=== PATIENT | male | born 1990 | race African-American/Black ===

== ENCOUNTER 2016-06-24 11:27 | Emergency (ER) | payer OTHER ==
[~2016-06-24] VITALS: Ht 172.7 cm; Wt 65.0 kg
[~2016-06-24 11:27] MED LIST: LITH300 PO; LITH450T PO; QUET100 PO; QUET200 PO; SERO100T PO
[2016-06-24 11:29] VITALS: BP 130/92; PULSE 57; RESP 14; TEMP 97.7; O2SAT 100
[2016-06-24] MEDS ORDERED: AMOX500C PO (12:07)
[2016-06-24] MEDS ORDERED: PERI0.126 SWISH-SPIT (12:07)
[2016-06-24] MEDS ORDERED: IBUP800T23 PO (12:07)
[2016-06-24] MEDS ORDERED: MAGICPED SWISH-SWAL (12:07)
--- NOTE | 2016-06-24 12:07 | PD ---
HPI Chief Complaint: Oral / Dental Pain or Problem Time Seen by Provider: 11:57 Travel History International Travel<30 days: No Contact w/Intl Traveler<30days: No Traveled to known affect area: No History of Present Illness HPI 26-year-old male presents to emergency department 2 complaints. His first complaint is right and left lower dental pain that has been going on for over a year. Denies dental trauma. Reports worsening of pain to both areas in the last few days. Denies facial swelling or erythema. Denies fever, chills, nausea, vomiting. No known relieving or aggravating factors. Has not taken any medications or tried any treatments to alleviate his symptoms. His second complaint is penile discharge for 2 days. 2 days ago his sexual partner told him that she had chlamydia. He denies penile pain, testicular pain , testicular edema. Denies abdominal pain, nausea, vomiting. Reports dysuria. Denies hematuria, frequency, urgency. No known allergies. No other modifying factors or associated signs and symptoms. PFSH Past Medical History Psychiatric: Yes (pt has been diagnosed with Bipolar ) Schizophrenia: Yes Social History Alcohol Use: No Tobacco Use: No Substance Use: No Allergies-Medications (Allergen,Severity, Reaction): Coded Allergies: No Known Allergies (Verified , 06/24/16) Reported Meds & Prescriptions Reported Meds & Active Scripts Active Ibuprofen 800 Mg Tab 800 Mg PO Q6HR PRN Magic Mouthwash Pediatric/Adult Liq (Lidocaine/Diphenhydr/Alum/Mg/Simeth) 60 Ml Susp 5 Ml SWISH-SWAL Q3HR PRN Each 5mL contains: Diphenydramine 4.5mg, Viscous Lidocaine 2% 10mg, Maalox Advanced Regular Strength 2.7ml Peridex Liq (Chlorhexidine Gluconate (Mouth) Liq) 0.12% Soln 15 Ml SWISH-SPIT BID 10 Days Amoxicillin 500 Mg Cap 500 Mg PO BID 10 Days Lithotabs ([place] Carbonate) 300 Mg Tab 300 Mg PO DAILY Lithotabs ([place] Carbonate) 300 Mg Tab 600 Mg PO HS Quetiapine Fumarate 200 Mg Tab 200 Mg PO HS Quetiapine Fumarate 100 Mg Tab 100 Mg PO DAILY Reported Seroquel 100 mg (Quetiapine Fumarate) 100 Mg Tab 100 Mg PO BID Eskalith 450 Mg Tab Cr ([place] Carbonate) 450 Mg Tabcr 450 Mg PO Review of Systems Except as stated in HPI: all other systems reviewed are Neg Physical Exam Narrative GENERAL: Well-nourished, well-developed male patient, in no acute distress; afebrile, nontoxic-appearing SKIN: Warm and dry. HEAD: Atraumatic. Normocephalic. No facial edema, erythema, tenderness on palpation. No lymphadenopathy. EYES: Pupils equal and round. No scleral icterus. No injection or drainage. ENT: Mucosa pink and moist. Airway patent. MOUTH: Mucous membranes moist, no lesions, tongue and gums appear normal. Left lower second molar and right lower first molar with tenderness on palpation; strength gingiva is without erythema, edema, drainage; no obvious abscess noted. NECK: Trachea midline. No lymphadenopathy. CARDIOVASCULAR: Regular rate. RESPIRATORY: No accessory muscle use. GASTROINTESTINAL: Flat. MUSCULOSKELETAL: No obvious deformities. No clubbing. No cyanosis. No edema. NEUROLOGICAL: Awake and alert. Oriented 3. No obvious cranial nerve deficits. Motor grossly within normal limits. Normal speech. PSYCHIATRIC: Appropriate mood and affect; insight and judgment normal. Data Data Last Documented VS Vital Signs Date Time Temp Pulse Resp B/P Pulse Ox O2 Delivery O2 Flow Rate FiO2 06/24/16 11:29 97.7 57 14 130/92 100 Room Air Orders Gc And Chlamydia Pcr (06/24/16 12:18) Azithromycin Powd Pack (Zithromax Powd P (06/24/16 12:30) Ceftriaxone Inj (Rocephin Inj) (06/24/16 12:30) Lidocaine 1% Inj (50 Ml) (Xylocaine 1% I (06/24/16 12:30) MDM Medical Decision Making Medical Screen Exam Complete: Yes Emergency Medical Condition: Yes Medical Record Reviewed: Yes Differential Diagnosis Exposure to chlamydia, dentalgia, sexual transmitted disease, dental abscess Narrative Course 26-year-old male with 2 complaints. First complaint is consistent with dentalgia. Patient instructed to follow up with dentist. Amoxicillin, Magic mouthwash, Peridex mouth rinse, ibuprofen prescribed for home. His second complaint is exposure to chlamydia. He reports penile discharge. Chlamydia and gonorrhea pending. The patient will be empirically treated with Rocephin and azithromycin in the ER. Rocephin and azithromycin ordered and administered in the ER. Instructed patient to follow up for further STD testing with his primary care provider or at the health department. Patient verbalizes understanding and agreement with treatment plan. Patient is medically cleared and stable for discharge. Discussed reasons to return to the emergency department. Instructed patient to follow up with primary care provider. Patient agrees with treatment plan. The patients vital signs are stable and the patient is stable for outpatient follow-up and treatment. Patient discharged home, stable and in no acute distress. Diagnosis Primary Impression: Dentalgia Additional Impression: Exposure to chlamydia Referrals: Dentist Primary Care Physician Patient Instructions: Chlamydia (ED), Dental Abscess (ED), Dental Caries (ED), General Instructions, Gonorrhea (ED), Toothache (ED) Departure Forms: Tests/Procedures, Work Release Enter return to work date: Jun 25, 2016 Additional Instructions: Complete full course of antibiotics Ibuprofen as directed and as needed to reduce pain and inflammation Use Magic mouthwash rinse as directed and as needed to decrease pain Use Peridex as directed for oral hygiene Warm or cold compresses to the affected area Follow-up with dentist Follow-up with primary care provider Return to emergency department immediately with worsening of symptoms Avoid sexual activity until you follow up with your primary care provider Inform all sexual partners within the past 3-6 months that they need to be evaluated and treated Use condoms every time you have sex Follow-up with primary care provider Return to the emergency department immediately with worsening of symptoms Med/Other Pt SpecificInfo: Prescription(s) given Scripts Ibuprofen 800 Mg [id number] Mg PO Q6HR PRN (PAIN) #30 TAB Ref 0 Prov:Aga Soni 06/24/16 Pxkuosrjjkiwjxt-Kcqrtlyte-Msl-Alum-Simeth Liq (Magic Mouthwash Pediatric/Adult Liq)60 Ml Susp5 Ml SWISH-SWAL Q3HR PRN (PAIN SCALE 1 TO 10) #60 ML Ref 0 Each 5mL contains: Diphenydramine 4.5mg, Viscous Lidocaine 2% 10mg, Maalox Advanced Regular Strength 2.7ml Prov:Aga Soni 06/24/16 Chlorhexidine Gluconate (Mouth) Liq (Peridex Liq)0.12% Soln15 Ml SWISH-SPIT BID 10 Days Ref 0 Prov:Aga Soni 06/24/16 Amoxicillin 500 Mg Ric322 Mg PO BID 10 Days Ref 0 Prov:Aga Soni 06/24/16 Disposition: 01 DISCHARGE HOME Condition: Stable Aga Soni Jun 24, 2016 12:07
[2016-06-24] MEDS ORDERED: cefTRIAXone 250 MG VIAL IM ONE (12:30)
[2016-06-24] MEDS ORDERED: LIDOCAINE HCL 1% 50 ML VIAL IM ONE (12:30)
[2016-06-24] MEDS ORDERED: AZITHROMYCIN PWD FOR SUSP 1 GM PACKET PO ONE (12:30)
[2016-06-24 14:46] LABS: CHLAMYDIA PCR DETECTED (NOT DETECT); NEISSERIA PCR DETECTED (NOT DETECT)
== END 2016-06-24 13:26 | disposition home or self-care (01) ==
LOC: NETRI 11:27
DX: K08.89 Other specified disorders of teeth and supporting structures (principal); Z20.2 Contact with and (suspected) exposure to infections with a predominantly sexual mode of transmission
CPT/HCPCS: 87491; 87591; 96372; 99283; J0696

== ENCOUNTER 2016-09-09 12:51 | Emergency (ER) | payer OTHER ==
[~2016-09-09] VITALS: Ht 172.7 cm; Wt 64.0 kg
[~2016-09-09 12:51] MED LIST changes: +AMOX500C PO; +IBUP800T23 PO; +MAGICPED SWISH-SWAL; +PERI0.126 SWISH-SPIT
[2016-09-09 12:52] VITALS: BP 129/65; PULSE 84; RESP 20; TEMP 97.9; O2SAT 98
[2016-09-09] MEDS ORDERED: LIDOCAINE HCL 1% 50 ML VIAL XX ONE (13:45)
[2016-09-09] MEDS ORDERED: metroNIDAZOLE 500 MG TAB PO ONE (13:45)
[2016-09-09] MEDS ORDERED: cefTRIAXone 250 MG VIAL IM ONE (13:45)
[2016-09-09] MEDS ORDERED: AZITHROMYCIN 250 MG TAB PO ONE (13:45)
[2016-09-09] MEDS ORDERED: ONDANSETRON ODT 4 MG TAB PO/SL ONE (13:45)
[2016-09-09 14:11] LABS: BLOOD, URINE NEG (NEG); COMMENT (UR) CULT NOT INDICATED; CULTURE IF INDICATED CULT NOT INDICATED; GLUCOSE,URINE NEG (NEG); KETONE, URINE NEG (NEG); MUCUS URINE FEW /lpf (OCC); NITRITE,URINE NEG (NEG); PH, URINE 6.5 (5.0-8.5); URINE COLOR YELLOW (YELLW/STRAW)
--- NOTE | 2016-09-09 14:23 | PD ---
HPI Chief Complaint: Complaint Time Seen by Provider: 14:00 Travel History International Travel<30 days: No Contact w/Intl Traveler<30days: No Traveled to known affect area: No History of Present Illness HPI Patient is a 26-year-old male presented to emergency evaluation of dysuria, penile discharge and tooth pain. Patient states that the pain is been ongoing for at least a year. He has no new complaints regarding that but states he needs to see a dentist. Patient had unprotected sexual intercourse 2 weeks ago and has been experiencing these symptoms for the last several days. He denies any abdominal pain, fever, chills, back pain. PFSH Past Medical History Psychiatric: Yes (pt has been diagnosed with Bipolar ) Schizophrenia: Yes Social History Alcohol Use: No Tobacco Use: No Substance Use: No Allergies-Medications (Allergen,Severity, Reaction): Coded Allergies: No Known Allergies (Verified , 09/09/16) Reported Meds & Prescriptions Reported Meds & Active Scripts Active Ibuprofen 800 Mg Tab 800 Mg PO Q6HR PRN Magic Mouthwash Pediatric/Adult Liq (Lidocaine/Diphenhydr/Alum/Mg/Simeth) 60 Ml Susp 5 Ml SWISH-SWAL Q3HR PRN Each 5mL contains: Diphenydramine 4.5mg, Viscous Lidocaine 2% 10mg, Maalox Advanced Regular Strength 2.7ml Peridex Liq (Chlorhexidine Gluconate (Mouth) Liq) 0.12% Soln 15 Ml SWISH-SPIT BID 10 Days Amoxicillin 500 Mg Cap 500 Mg PO BID 10 Days Lithotabs ([place] Carbonate) 300 Mg Tab 300 Mg PO DAILY Lithotabs ([place] Carbonate) 300 Mg Tab 600 Mg PO HS Quetiapine Fumarate 200 Mg Tab 200 Mg PO HS Quetiapine Fumarate 100 Mg Tab 100 Mg PO DAILY Reported Seroquel 100 mg (Quetiapine Fumarate) 100 Mg Tab 100 Mg PO BID Eskalith 450 Mg Tab Cr ([place] Carbonate) 450 Mg Tabcr 450 Mg PO Review of Systems Except as stated in HPI: all other systems reviewed are Neg HENT: Positive: Dental Difficulties Genitourinary: Positive: Dysuria, Discharge Physical Exam Narrative GENERAL: Well-nourished, well-developed patient. SKIN: Focused skin assessment warm/dry. HEAD: Normocephalic. MOUTH: Mucous membranes moist, no lesions, tongue and gums appear normal. Multiple dental caries. EYES: No scleral icterus. No injection or drainage. NECK: Supple, trachea midline. No JVD or lymphadenopathy. CARDIOVASCULAR: Regular rate and rhythm without murmurs, gallops, or rubs. RESPIRATORY: Breath sounds equal bilaterally. No accessory muscle use. GASTROINTESTINAL: Abdomen soft, non-tender, nondistended. MUSCULOSKELETAL: No cyanosis, or edema. BACK: Nontender without obvious deformity. No CVA tenderness. Data Data Last Documented VS Vital Signs Date Time Temp Pulse Resp B/P Pulse Ox O2 Delivery O2 Flow Rate FiO2 09/09/16 12:52 97.9 84 20 129/65 98 Room Air Orders Urinalysis - C+S If Indicated (09/09/16 13:40) Gc And Chlamydia Pcr (09/09/16 13:40) Azithromycin (Zithromax) (09/09/16 13:45) Ceftriaxone Inj (Rocephin Inj) (09/09/16 13:45) Metronidazole (Flagyl) (09/09/16 13:45) Ondansetron Odt (Zofran Odt) (09/09/16 13:45) Lidocaine 1% Inj (50 Ml) (Xylocaine 1% I (09/09/16 13:45) Labs Laboratory Tests Test 09/09/16 13:49 Urine Color YELLOW Urine Turbidity CLEAR Urine pH 6.5 Urine Specific [place] 1.024 Urine Protein NEG mg/dL Urine Glucose (UA) NEG mg/dL Urine Ketones NEG mg/dL Urine Occult Blood NEG Urine Nitrite NEG Urine Bilirubin NEG Urine Urobilinogen LESS THAN 2.0 MG/DL Urine Leukocyte Esterase TRACE Urine RBC 4 /hpf Urine WBC 4 /hpf Urine Mucus FEW /lpf Microscopic Urinalysis Comment CULT NOT INDICATED MDM Medical Decision Making Medical Screen Exam Complete: Yes Emergency Medical Condition: Yes Medical Record Reviewed: Yes Interpretation(s) Vital Signs Date Time Temp Pulse Resp B/P Pulse Ox O2 Delivery O2 Flow Rate FiO2 09/09/16 12:52 97.9 84 20 129/65 98 Room Air Differential Diagnosis Dentalgia versus abscess versus dental infection versus STD versus UTI versus other Narrative Course Patient is a 26-year-old male presenting to the emergency department evaluation of urinary symptoms and dental pain. Dental pain is been ongoing for over a year. Urinary symptoms and ongoing for 3 days. Patient was treated empirically for chlamydia, gonorrhea, trichomoniasis. He has a history of the same. He was advised to avoid sexual contact with partner until they are tested or treated. He was advised to maintain safe sexual practices to avoid transmission of other sexually transmitted diseases. He was advised to follow up with [facility] Department for further STD screening. Patient verbalized understanding of instructions. Patient stable for discharge. Diagnosis Primary Impression: Dentalgia Additional Impressions: Dysuria Possible exposure to STD Referrals: Dentist [facility] Dept. Patient Instructions: General Instructions, Sexually Transmitted Diseases (ED) , Toothache (ED) Additional Instructions: Do not engage in sexual intercourse for 3-5 days. Do not drink alcohol for at least 48 hours Avoid contact with sexual partner until they are tested/treated to avoid re- exposure Return to emergency department for any new or worsening symptoms You need to see a dentist for chronic dental problems. Med/Other Pt SpecificInfo: No Change to Meds Disposition: 01 DISCHARGE HOME Condition: Stable Kinza Conde September 09, 2016 14:23
[2016-09-09 16:42] LABS: CHLAMYDIA PCR NOT DETECTED (NOT DETECT); NEISSERIA PCR NOT DETECTED (NOT DETECT)
== END 2016-09-09 14:52 | disposition home or self-care (01) ==
LOC: NEPK 12:51
DX: K08.89 Other specified disorders of teeth and supporting structures (principal); R30.0 Dysuria
CPT/HCPCS: 81001; 87491; 87591; 96372; 99284; J0696

== ENCOUNTER 2016-10-05 11:15 | Emergency (ER) | payer OTHER ==
[~2016-10-05] VITALS: Ht 180.3 cm; Wt 70.0 kg
[2016-10-05 11:16] VITALS: BP 136/69; PULSE 110; RESP 20; TEMP 98.3; O2SAT 97
--- NOTE | 2016-10-05 11:28 | PD ---
Physical Exam Time Seen by Provider: 11:27 Narrative 26yo M c/o sore to tip of tongue since last night. +painful sore. Luther fever. +nausea w/o vomiting. Patient seen in triage. Awaiting bed placement. VS reviewed. Data Data Last Documented VS Vital Signs Date Time Temp Pulse Resp B/P Pulse Ox O2 Delivery O2 Flow Rate FiO2 10/05/16 11:16 98.3 110 20 136/69 97 Room Air MDM Supervised Visit with RICKY: Aga Barron Oct 05, 2016 11:28
--- NOTE | 2016-10-05 11:56 | PD ---
HPI Chief Complaint: Oral / Dental Pain or Problem Time Seen by Provider: 11:47 Travel History International Travel<30 days: No Contact w/Intl Traveler<30days: No Traveled to known affect area: No History of Present Illness HPI 26-year-old male here with complaint of oral lesion. Patient states that he has had one day of a lesion on the tip of the tongue. States that this is slightly painful, worse when he is eating particularly salty or sour foods. States that the lesion makes him feel slightly nauseous but he has not had any vomiting, diarrhea or abdominal pain. No fevers or chills. PFSH Past Medical History Psychiatric: Yes (pt has been diagnosed with Bipolar ) Schizophrenia: Yes Social History Alcohol Use: No Tobacco Use: No Substance Use: No Allergies-Medications (Allergen,Severity, Reaction): Coded Allergies: No Known Allergies (Verified , 09/09/16) Reported Meds & Prescriptions Reported Meds & Active Scripts Active Ibuprofen 800 Mg Tab 800 Mg PO Q6HR PRN Magic Mouthwash Pediatric/Adult Liq (Lidocaine/Diphenhydr/Alum/Mg/Simeth) 60 Ml Susp 5 Ml SWISH-SWAL Q3HR PRN Each 5mL contains: Diphenydramine 4.5mg, Viscous Lidocaine 2% 10mg, Maalox Advanced Regular Strength 2.7ml Peridex Liq (Chlorhexidine Gluconate (Mouth) Liq) 0.12% Soln 15 Ml SWISH-SPIT BID 10 Days Amoxicillin 500 Mg Cap 500 Mg PO BID 10 Days Lithotabs ([place] Carbonate) 300 Mg Tab 300 Mg PO DAILY Lithotabs ([place] Carbonate) 300 Mg Tab 600 Mg PO HS Quetiapine Fumarate 200 Mg Tab 200 Mg PO HS Quetiapine Fumarate 100 Mg Tab 100 Mg PO DAILY Reported Seroquel 100 mg (Quetiapine Fumarate) 100 Mg Tab 100 Mg PO BID Eskalith 450 Mg Tab Cr ([place] Carbonate) 450 Mg Tabcr 450 Mg PO Review of Systems General / Constitutional: No: Fever Cardiovascular: No: Chest Pain or Discomfort Respiratory: No: Shortness of Breath Physical Exam Narrative GENERAL: Well-appearing male in no acute distress SKIN: Focused skin assessment warm/dry. No lesions on the skin. HEAD: Normocephalic. EYES: No scleral icterus. No injection or drainage. No ocular lesions. ENT: Small aphthous ulcer on the tip of the tongue and posterior pharynx is clear NECK: Supple CARDIOVASCULAR: Regular rate and rhythm. RESPIRATORY: No accessory muscle use. GASTROINTESTINAL: Abdomen soft, non-tender, nondistended. MUSCULOSKELETAL: Normal gait NEUROLOGICAL: Awake and alert. Normal speech. Data Data Last Documented VS Vital Signs Date Time Temp Pulse Resp B/P Pulse Ox O2 Delivery O2 Flow Rate FiO2 10/05/16 11:16 98.3 110 20 136/69 97 Room Air MDM Medical Decision Making Medical Screen Exam Complete: Yes Emergency Medical Condition: No Medical Record Reviewed: Yes Differential Diagnosis 26-year-old male here with complaint of lesion to the tongue. Exam shows small aphthous ulcer. No evidence of other mucosal involvement or rash Narrative Course Patient was reassured. This is not emergent. No emergent medical condition and he was seen by our financial screener Diagnosis Primary Impression: Aphthous ulcer Disposition: EDGO-ED USE ONLY Condition: Stable Marycruz Lew MD Oct 05, 2016 11:56
== END 2016-10-05 12:56 | disposition home or self-care (01) ==
LOC: NEPA 11:15
DX: K12.0 Recurrent oral aphthae (principal); F31.9 Bipolar disorder, unspecified; F20.9 Schizophrenia, unspecified; Z79.899 Other long term (current) drug therapy
CPT/HCPCS: 99281

== ENCOUNTER 2017-07-15 09:10 | Inpatient (IN) | payer MEDICAID, OTHER ==
[2017-07-15 09:13] VITALS: BP 158/97; PULSE 94; RESP 14; TEMP 97.4; O2SAT 99
--- NOTE | 2017-07-15 10:07 | PD ---
HPI Chief Complaint: Psychiatric Symptoms Time Seen by Provider: 09:28 Travel History International Travel<30 days: No Contact w/Intl Traveler<30days: No Traveled to known affect area: No History of Present Illness HPI 27-year-old male presents to the emergency department voluntarily for psychiatric evaluation with complaint of worsening of hearing voices and feeling depressed with worsening since being off of his psychiatric medication. He has history of schizophrenia and bipolar disorder and has been off of his medications for about 2-1/2 months. He does not know the name of his medications he was taking says he thought he could come off of his medications and deal with things on his own and do it himself. Denies visual hallucinations. Denies suicidal or homicidal ideations. Denies history of suicidal attempts. Reports marijuana use, occasional alcohol use and tobacco use. Symptoms have become worse since he has been off of his medications. He is also dealing with someone who is like a mom to him who has and a lot of stress lately. Symptoms are moderate to severe in severity. No known relieving factors. Duration unknown. Onset unknown. No primary care provider. Psychiatrist is Jonathan. No known allergies. History of schizophrenia and bipolar disorder. Denies other significant past medical history. Has no other medical complaints. Denies chest pain, shortness breath , abdominal pain, nausea, vomiting, change in urine or stool. No other modifying factors or associated signs and symptoms. PFSH Past Medical History Bipolar Disorder: Yes Depression: Yes Psychiatric: Yes Schizophrenia: Yes Past Surgical History Surgical History: No Previous Surgery Social History Alcohol Use: Yes (OCCASSIONAL) Tobacco Use: No Substance Use: Yes (MARIJUANA SOMETIMES) Allergies-Medications (Allergen,Severity, Reaction): Coded Allergies: No Known Allergies (Verified Adverse Reaction, Unknown, 07/15/17) Reported Meds & Prescriptions Reported Meds & Active Scripts Active No Active Prescriptions or Reported Medications Review of Systems Except as stated in HPI: all other systems reviewed are Neg Physical Exam Narrative GENERAL: Well-nourished, well-developed black male patient, in no acute distress SKIN: Warm and dry. HEAD: Atraumatic. Normocephalic. EYES: Pupils equal and round. ENT: Mucosa pink and moist. NECK: Supple. Trachea midline. CARDIOVASCULAR: Regular rate and rhythm. No murmur appreciated. RESPIRATORY: No accessory muscle use. Clear to auscultation. Breath sounds equal bilaterally. GASTROINTESTINAL: Abdomen soft, non-tender, nondistended. Hepatic and splenic margins not palpable. Bowel sounds are active 4 quadrants. MUSCULOSKELETAL: No obvious deformities. No clubbing. No cyanosis. No edema. NEUROLOGICAL: Awake and alert. Oriented 3. No obvious cranial nerve deficits. Motor grossly within normal limits. Normal speech. Moves all extremities. 5/5 strength to all extremities. PSYCHIATRIC: No delusional thought processes. No hallucinations. Data Data Last Documented VS Vital Signs Date Time Temp Pulse Resp B/P (MAP) Pulse Ox O2 Delivery O2 Flow Rate FiO2 07/15/17 09:45 18 07/15/17 09:13 97.4 94 158/97 (117) 99 Orders Orders Complete Blood Count With Diff (07/15/17:29) Comprehensive Metabolic Panel (07/15/17 09:29) Thyroid Stimulating Hormone (07/15/17:29) Psych Screen (07/15/17 09:29) Drug Screen, Random Urine (07/15/17:29) Alcohol (Ethanol) (07/15/17 09:29) Salicylates (Aspirin) (07/15/17 09:29) Tylenol (Acetaminophen) (07/15/17 09:29) MDM Medical Decision Making Medical Screen Exam Complete: Yes Emergency Medical Condition: Yes Medical Record Reviewed: Yes Differential Diagnosis Schizophrenia, bipolar disorder, depression, hallucinations, medical clearance for psychiatric evaluation Narrative Course Patient presents voluntarily. Physical examination and vital signs are essentially unremarkable. Patient has no medical complaints to report. Psych screen has been ordered. If the laboratory results are unremarkable, the patient will be medically cleared for psychiatric evaluation and disposition. Diagnosis Primary Impression: Encounter for psychological evaluation Scripts No Active Prescriptions or Reported Meds Condition: Stable Aga Soni Jul 15, 2017 10:07
[2017-07-15 10:26] LABS: BASOPHIL % 0.5 % (0.0-2.0); EOSINOPHIL # 0.2 TH/MM3 (0-0.4); HEMATOCRIT 40.8 % (39.0-51.0); HEMOGLOBIN 13.5 GM/DL (13.0-17.0); LYMPH % 24.2 % (9.0-44.0); LYMPHOCYTE # 1.8 TH/MM3 (1.0-4.8); MEAN CELL VOLUME 85.1 FL (80.0-100.0); MEAN CORPUSCULAR HEMOGLOBIN 28.2 PG (27.0-34.0); MEAN CORPUSCULAR HGB CONC 33.2 % (32.0-36.0); MEAN PLATELET VOLUME 7.9 FL (7.0-11.0); MONO % 8.1 % (0.0-8.0); MONOCYTE # 0.6 TH/MM3 (0-0.9); NEUT % 65.2 % (16.0-70.0); PLATELET COUNT 168 TH/MM3 (150-450); RED BLOOD COUNT 4.79 MIL/MM3 (4.50-5.90); RED CELL DISTRIBUTION WIDTH 14.8 % (11.6-17.2); WHITE BLOOD COUNT 7.6 TH/MM3 (4.0-11.0)
[2017-07-15 10:58] LABS: ALBUMIN 3.8 GM/DL (3.4-5.0); AST (GOT) 38 U/L (15-37); BICARBONATE 27.5 MEQ/L (21.0-32.0); BLOOD UREA NITROGEN 12 MG/DL (7-18); CALCIUM 8.8 MG/DL (8.5-10.1); CHLORIDE 102 MEQ/L (98-107); CREATININE 0.99 MG/DL (0.60-1.30); GLOMERULAR FILTRATION RATE 109 ML/MIN (>89); GLUCOSE,RANDOM 163 MG/DL (74-106); SODIUM (NA) 135 MEQ/L (136-145)
[2017-07-15 11:08] LABS: ALKALINE PHOSPHATASE 87 U/L (45-117); ALT (GPT) 26 U/L (12-78); TOTAL BILIRUBIN ADULT 0.3 MG/DL (0.2-1.0)
[2017-07-15 11:13] LABS: ACETAMINOPHEN LESS THAN 2.0 MCG/ML (10.0-30.0)
[2017-07-15 18:22] VITALS: BP 133/80; PULSE 96; RESP 20; TEMP 98.2; O2SAT 100
[2017-07-15 23:47] VITALS: BP 110/63; PULSE 55; RESP 17; TEMP 97.8; O2SAT 98
[2017-07-16 04:33] VITALS: BP 119/76; PULSE 63; RESP 16; TEMP 98.5; O2SAT 97
[2017-07-16 10:24] VITALS: BP 108/66; PULSE 76; RESP 16; TEMP 98.1; O2SAT 99
--- NOTE | 2017-07-16 11:20 | HHI.HP ---
Provisional Diagnosis Admission Date Jul 16, 2017 at 11:01 [place] I. 1. Bipolar disorder, presently depressed, severe with psychotic features 2. Polysubstance abuse [place] II. Deferred Certification of Person's Competence To Provide Express and Informed Consent I have personally examined Atiya Calderon , a person being served at [facility] on, Jul 16, 2017 11:05. Express and informed consent means consent voluntarily given in writing, by a competent person, after sufficient explanation and disclosure of the subject matter involved to enable the person to make a knowing and willful decision without any element of force, fraud, deceit, duress, or other form of constraint or coercion. This person is 18 years of age or older, is not now known to be incompetent to consent to treatment with a guardian advocate, and does not have a health care surrogate or proxy currently making medical treatment decisions. I have found this person to be one of the following: [] Competent to provide express and informed consent, as defined above, for voluntary admission to this facility and is competent to provide express and informed consent for treatment. He/she has the consistent capacity to make well reasoned, willful, and knowing decisions concerning his or her medical or mental health treatment. The person fully and consistently understands the purpose of the admission for examination/placement and is fully capable of personally exercising all rights assured under [place] [] Incompetent to provide express and informed consent to voluntary admission, and this is incompetent to provide express and informed consent to treatment. The person must be transferred to involuntary status and a petition for a guardian advocate filed with the Circuit Court. [x] Refusing to provide express and informed consent to voluntary admission but is competent to provide express and informed consent for treatment. The person must be discharged or transferred to involuntary status. Form shall be completed within 24 hours of a person's arrival at the receiving facility and filed in the clinical record of each person: 1. Admitted on a voluntary basis 2. Permitted to provide express and informed consent to his/her own treatment 3. Allowed to transfer from involuntary to voluntary status 4. Prior to permitting a person to consent to his or her own treatment after having been previously found incompetent to consent to treatment. History of Present Illness Capacity: Has Capacity (To consent for medication/treatment) Psych Chief Complaint: Bipolar depression HPI Mr. Calderon is a 27-year-old male with a history of bipolar disorder who presented to the emergency department complaining of worsening auditory hallucinations and depression in the setting of medication nonadherence. Reviewing the electronic medical record, I note the patient was admitted under Dr. Manning in September 2015 with diagnosis of bipolar disorder. Patient seen and examined. Chart reviewed. Case discussed with nurse in the emergency department. On my examination this morning, the patient reports that he has been off of his psychotropic medications, lithium and Seroquel for about the last 2 months. He says that he has been experiencing psychosocial stressors including a in the family and also the fact that the mother of his children has moved further away meaning it is more difficult for him to see his children. In the setting of the stressors in medication nonadherence, the patient reports worsening low mood, anxiety. Anhedonia is present. Some hopeless/worthless feelings. He reports auditory hallucinations, presently deprecatory. He is not presently suicidal but is fearful that he might become so soon without treatment. The patient notes that he is unlikely to comply with treatment in a less restrictive setting and this is why, in a moment of clarity, he brought himself to the ED. Even now, he seems to be growing ambivalent about pursuing treatment for his mental health issues. No delusional material. No current hypomanic or manic symptoms. Remainder of the psychiatric ROS is negative. No acute physical complaints. Past psychiatric history: The patient has a history of bipolar disorder. He follows at [facility] and was reportedly prescribed lithium and Seroquel. He has done well with these agents he tells me when he was on them in the past. Most recent psychiatric admission was here at [place]. He denies a history of suicide or violence in the past. Family history: Patient denies family history of mental illness or suicide. Chemical dependency history: The patient reports use of cannabis. He denies any use of cocaine although his urine toxicology is positive for this. Occasional alcohol. Denies any use of benzos or opiates. Social history: The patient lives with an uncle. He has 4 children who live with their mother. He has 1/9 grade education. 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 He denies any or legal history. Denies any access to guns or firearms. He is a [employer]. He denies any history of abuse. Review of Systems ROS Limitations: Psychotic Except as stated in HPI: all other systems reviewed are Neg Past Family Social History Coded Allergies: No Known Allergies (Verified Adverse Reaction, Unknown, 07/15/17) Past Medical History Patient denies any past medical history and takes no general medical medications. No Active Prescriptions or Reported Meds Patient's Strengths (min. 2) In a monitored setting. Verbally fluent. Physical Exam Physical exam completed by ED provider. On my examination today, the patient appears to be in no acute physical distress. No motor abnormalities noted. No signs of intoxication or withdrawal noted. Labs and vitals reviewed: Vital Signs Vital Signs Date Time Temp Pulse Resp B/P (MAP) Pulse Ox O2 Delivery O2 Flow Rate FiO2 07/16/17 10:24 98.1 76 16 108/66 (80) 99 Room Air Lab Results Laboratory Tests Test 07/15/17 10:03 White Blood Count 7.6 TH/MM3 Red Blood Count 4.79 MIL/MM3 Hemoglobin 13.5 GM/DL Hematocrit 40.8 % Mean Corpuscular Volume 85.1 FL Mean Corpuscular Hemoglobin 28.2 PG Mean Corpuscular Hemoglobin Concent 33.2 % Red Cell Distribution Width 14.8 % Platelet Count 168 TH/MM3 Mean Platelet Volume 7.9 FL Neutrophils (%) (Auto) 65.2 % Lymphocytes (%) (Auto) 24.2 % Monocytes (%) (Auto) 8.1 % Eosinophils (%) (Auto) 2.0 % Basophils (%) (Auto) 0.5 % Neutrophils # (Auto) 5.0 TH/MM3 Lymphocytes # (Auto) 1.8 TH/MM3 Monocytes # (Auto) 0.6 TH/MM3 Eosinophils # (Auto) 0.2 TH/MM3 Basophils # (Auto) 0.0 TH/MM3 CBC Comment DIFF FINAL Differential Comment Blood Urea Nitrogen 12 MG/DL Creatinine 0.99 MG/DL Random Glucose 163 MG/DL Total Protein 8.0 GM/DL Albumin 3.8 GM/DL Calcium Level 8.8 MG/DL Alkaline Phosphatase 87 U/L Aspartate Amino Transf (AST/SGOT) 38 U/L Alanine Aminotransferase (ALT/SGPT) 26 U/L Total Bilirubin 0.3 MG/DL Sodium Level 135 MEQ/L Potassium Level 4.7 MEQ/L Chloride Level 102 MEQ/L Carbon Dioxide Level 27.5 MEQ/L Anion Gap 6 MEQ/L Estimat Glomerular Filtration Rate 109 ML/MIN Thyroid Stimulating Hormone 3rd Gen 1.920 uIU/ML Salicylates Level LESS THAN 1.7 MG/DL Urine Opiates Screen NEG Acetaminophen Level LESS THAN 2.0 MCG/ML Urine Barbiturates Screen NEG Urine Amphetamines Screen NEG Urine Benzodiazepines Screen NEG Urine Cocaine Screen POS Urine Cannabinoids Screen POS Ethyl Alcohol Level LESS THAN 3 MG/DL Mental Status Examination Appearance: Disheveled (Mild) Consciousness: Alert Orientation: x4 Motor Activity: Other (No motor abnormalities noted) Speech: Hesitant Language: Adequate Fund of Knowledge: Adequate Attention and Concentration: Adequate Memory: Unremarkable Mood: Other (Depressed) Affect: Other (Restricted) Thought Process & Associations: Intact Thought Content: Hallucinations Hallucination Type: Auditory (Deprecatory) Delusion Type: None Suicidal Ideation: No (Not presently but perhaps imminent) Suicidal Plan: No Suicidal Intention: No Homicidal Ideation: No Homicidal Plan: No Homicidal Intention: No Insight: Fair Judgment: Impulsive Assessment & Plan Problem List: (1) Bipolar disorder, curr episode depressed, severe, w/psychotic features ICD Codes: F31.5 - Bipolar disorder, current episode depressed, severe, with psychotic features (2) Polysubstance abuse ICD Codes: F19.10 - Other psychoactive substance abuse, uncomplicated Assessment & Plan 27-year-old male with psychiatric history as detailed above who presents for psychiatric evaluation. On my examination today, the patient reports worsening depression with onset of psychotic symptoms. He is not presently suicidal but development of suicidal ideation is likely as his mood continues to worsen. He is ambivalent about receiving treatment and admits that he is unlikely to pursue treatment in a less restrictive setting. He even seems to be growing ambivalent about pursuing inpatient treatment at this point. Given the severity of his current symptomatology, I think it is the most prudent course of action at this point to initiate a Miles act to allow for inpatient management of his current psychiatric symptoms. Patient requires psychiatric hospitalization at this time for safety, observation and stabilization. Admit inpatient. Involuntary status. I have initiated Miles act and completed first opinion. Consult for second opinion. Patient does retain capacity to consent for medications. Resume lithium SR 450 mg twice daily with plans to check a level after the weekend. Renal function and thyroid function adequate. Plan to check a lithium level after the weekend. Resume Seroquel 100 mg in the morning and 200 mg at bedtime. Atarax as needed for anxiety, Cogentin as needed for EPS, Benadryl as needed for sleep. R/B/A for medications discussed with patient. Vitals every shift. Counselor to see. Disposition planning. Estimated length of stay: 5-7 days. Discharge Planning Pending psychiatric stabilization Request HC Surrog/Guard Advoc?: No Chano Cloud MD Jul 16, 2017 11:20
[2017-07-16] MEDS ORDERED: hydrOXYzine HCL 50 MG TAB PO PRN (12:00)
[2017-07-16] MEDS ORDERED: diphenhydrAMINE HCL 50 MG CAP PO PRN (12:00)
[2017-07-16] MEDS ORDERED: BENZTROPINE MESYLATE 1 MG TAB PO PRN (12:00)
[2017-07-16] MEDS ORDERED: MAGNESIUM HYDROXIDE SUSP 30 ML CUP PO PRN (12:00)
[2017-07-16] MEDS ORDERED: BENZTROPINE MESYLATE 2 MG/2 ML VIAL IM PRN (12:00)
[2017-07-16] MEDS ORDERED: ALUMINUM/MAGNESIUM/SIMETH 30 ML CUP PO PRN (12:00)
[2017-07-16] MEDS ORDERED: ACETAMINOPHEN 325 MG TAB PO PRN (12:00)
[2017-07-16] MEDS ORDERED: NICOTINE 21 MG/24 HR PATCH T-DERMAL PRN (13:00)
[2017-07-16] MEDS ORDERED: REMOVE OLD PATCH T-DERMAL PRN (13:00)
--- NOTE | 2017-07-16 14:04 | PD.PSY.CON ---
Provisional Diagnosis Admission Date Jul 16, 2017 at 11:01 [place] I. 1. Bipolar disorder, presently depressed, severe with psychotic features 2. Polysubstance abuse [place] II. Deferred History of Present Illness Service Psychiatry Consult Requested By Dr. Cloud Reason for Consult Second opinion renetta Miles act Primary Care Physician No Primary Care Physician HPI Mr. Calderon is a 27-year-old male with a history of bipolar disorder who presented to the emergency department complaining of worsening auditory hallucinations and depression in the setting of medication nonadherence. Reviewing the electronic medical record, I note the patient was admitted under Dr. Manning in September 2015 with diagnosis of bipolar disorder. Patient seen and examined. Chart reviewed. Case discussed with nurse in the emergency department. On my examination this morning, the patient reports that he has been off of his psychotropic medications, lithium and Seroquel for about the last 2 months. He says that he has been experiencing psychosocial stressors including a in the family and also the fact that the mother of his children has moved further away meaning it is more difficult for him to see his children. In the setting of the stressors in medication nonadherence, the patient reports worsening low mood, anxiety. Anhedonia is present. Some hopeless/worthless feelings. He reports auditory hallucinations, presently deprecatory. He is not presently suicidal but is fearful that he might become so soon without treatment. The patient notes that he is unlikely to comply with treatment in a less restrictive setting and this is why, in a moment of clarity, he brought himself to the ED. Even now, he seems to be growing ambivalent about pursuing treatment for his mental health issues. No delusional material. No current hypomanic or manic symptoms. Remainder of the psychiatric ROS is negative. No acute physical complaints. Past psychiatric history: The patient has a history of bipolar disorder. He follows at [facility] and was reportedly prescribed lithium and Seroquel. He has done well with these agents he tells me when he was on them in the past. Most recent psychiatric admission was here at [place]. He denies a history of suicide or violence in the past. Family history: Patient denies family history of mental illness or suicide. Chemical dependency history: The patient reports use of cannabis. He denies any use of cocaine although his urine toxicology is positive for this. Occasional alcohol. Denies any use of benzos or opiates. Social history: The patient lives with an uncle. He has 4 children who live with their mother. He has 1/9 grade education. 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 He denies any or legal history. Denies any access to guns or firearms. He is a Jewish. He denies any history of abuse. 07/16/17 Above note dictated but Pedro Luis reviewed and agreed with, patient admitted to Dr. Cloud service. Dr. Pedro Luis Krueger first opinion petition supporting Miles act. Patient seen by me in his room with floor staff, patient alert oriented Afro[place] male acknowledging continued auditory hallucinations out of her threatening nature. He does acknowledge unilaterally stopped his medication now has some regrets to this. At this time I agree with Dr. Cloud. Patient meets criteria for involuntary psychiatric hospitalization under the Miles thus I'll cosign second opinion petition supporting [place] act Past Family Social History Coded Allergies: No Known Allergies (Verified Allergy, Unknown, 07/16/17) No Active Prescriptions or Reported Meds Current Medications Medications (Trade) Dose Ordered Sig/Tony Route Start Time Stop Time Status Last Admin (Eskalith Sr) 450 mg BIDPC PO 07/16/17 18:00 (SEROquel) 100 mg DAILY PO 07/17/17 09:00 (SEROquel) 200 mg HS PO 07/16/17 21:00 (Benadryl) 50 mg HS PRN PO 07/16/17 12:00 (Tylenol) 650 mg Q4H PRN PO 07/16/17 12:00 (Milk Of Magnesia Liq) 30 ml DAILY PRN PO 07/16/17 12:00 (Mag-Al Plus Susp Liq) 30 ml Q6H PRN PO 07/16/17 12:00 (Habitrol 21 Mg Patch.24 Hr) 1 patch DAILY PRN T-DERMAL 07/16/17 13:00 (Atarax) 50 mg Q6H PRN PO 07/16/17 12:00 (Cogentin) 1 mg Q12H PRN PO 07/16/17 12:00 (Cogentin Inj) 1 mg Q12H PRN IM 07/16/17 12:00 Miscellaneous Information 1 DAILY PRN T-DERMAL 07/16/17 13:00 Patient's Strengths (min. 2) In a monitored setting. Verbally fluent. Physical Exam Vital Signs Vital Signs Date Time Temp Pulse Resp B/P (MAP) Pulse Ox O2 Delivery O2 Flow Rate FiO2 07/16/17 12:34 07/16/17 10:24 98.1 76 16 99 Room Air Mental Status Examination Appearance: Disheveled (Mild) Consciousness: Alert Orientation: x4 Motor Activity: Other (No motor abnormalities noted) Speech: Hesitant Language: Adequate Fund of Knowledge: Adequate Attention and Concentration: Adequate Memory: Unremarkable Mood: Other (Depressed) Affect: Other (Restricted) Thought Process & Associations: Intact Thought Content: Hallucinations Hallucination Type: Auditory (Deprecatory) Delusion Type: None Suicidal Ideation: No (Not presently but perhaps imminent) Suicidal Plan: No Suicidal Intention: No Homicidal Ideation: No Homicidal Plan: No Homicidal Intention: No Insight: Fair Judgment: Impulsive Assessment & Plan Problem List: (1) Bipolar disorder, curr episode depressed, severe, w/psychotic features ICD Codes: F31.5 - Bipolar disorder, current episode depressed, severe, with psychotic features (2) Polysubstance abuse ICD Codes: F19.10 - Other psychoactive substance abuse, uncomplicated Assessment & Plan Estimated LOS: days Request HC Surrog/Guard Advoc?: No Jonnie Almeida MD Jul 16, 2017 14:04
[2017-07-16] MEDS: LITHIUM CARBONATE 450 MG CONTROLLED RELEASE TAB PO SCH (18:15)
[2017-07-16] MEDS: QUEtiapine FUMARATE 200 MG TAB PO SCH (21:06)
[2017-07-17 06:06] VITALS: BP 117/73; PULSE 60; RESP 18; TEMP 97.3; O2SAT 100
[2017-07-17 09:23] LABS: CHOLESTEROL 173 MG/DL (120-200)
[2017-07-17 09:25] LABS: CHOLESTEROL/ HDL RATIO 2.43 RATIO; LDL CHOLESTEROL 92 MG/DL (0-99); TRIGLYCERIDES 52 MG/DL (42-150)
[2017-07-17] MEDS: LITHIUM CARBONATE 450 MG CONTROLLED RELEASE TAB PO SCH ×2 (10:39→18:02)
[2017-07-17] MEDS: QUEtiapine FUMARATE 100 MG TAB PO SCH (10:39)
[2017-07-17 12:56] LABS: HEMOGLOBIN A1C 5.7 % (4.3-6.0)
--- NOTE | 2017-07-17 13:26 | HHI.PYPN ---
Subjective Chief Complaint: Bipolar depression Remarks Reviewed electronic medical record and discussed case with staff. Follow-up was conducted in patient's room. Patient was found lying in bed quietly he responded to verbal stimuli. He is denying hallucinations today reports that he was off his medications. He states that he is feeling "all right". He denies suicidal or homicidal ideation and states that he has no visual hallucinations. Staff reports that he has been compliant with his medications while here. Mental Status Examination Appearance: Disheveled (Mild) Consciousness: Alert Orientation: x4 Motor Activity: Other (No motor abnormalities noted) Speech: Hesitant Language: Adequate Fund of Knowledge: Adequate Attention and Concentration: Adequate Memory: Unremarkable Mood: Other (Depressed) Affect: Other (Restricted) Thought Process & Associations: Intact Thought Content: Hallucinations Hallucination Type: Auditory (Deprecatory) Delusion Type: None Suicidal Ideation: No (Not presently but perhaps imminent) Suicidal Plan: No Suicidal Intention: No Homicidal Ideation: No Homicidal Plan: No Homicidal Intention: No Insight: Fair Judgment: Impulsive Results Labs Test 07/17/17 07:57 Triglycerides Level 52 MG/DL Cholesterol Level 173 MG/DL LDL Cholesterol 92 MG/DL HDL Cholesterol 71.0 MG/DL Cholesterol/HDL Ratio 2.43 RATIO Vitals/IOs Vital Signs Date Time Temp Pulse Resp B/P (MAP) Pulse Ox O2 Delivery O2 Flow Rate FiO2 07/17/17 06:06 97.3 60 18 117/73 (88) 100 07/16/17 10:24 Room Air Assessment & Plan Problem List: (1) Bipolar disorder, curr episode depressed, severe, w/psychotic features ICD Codes: F31.5 - Bipolar disorder, current episode depressed, severe, with psychotic features (2) Polysubstance abuse ICD Codes: F19.10 - Other psychoactive substance abuse, uncomplicated Assessment & Plan Estimated LOS: We will continue with care plan to get patient stabilized on his medications. Justification for Cont. Inpt. Moving this patient to a lower level of care would likely result in decompensation due to his need to be stabilized on his medications. Request HC Surrog/Guard Advoc?: No Vikki Bailey Jul 17, 2017 13:26
--- NOTE | 2017-07-17 14:58 | EKG ---
Date Performed: 07/17/2017 Time Performed: 11:02:09 PTAGE: 27 years EKG: Sinus rhythm NORMAL ECG PREVIOUS TRACING : 10/17/1998 09.37 Since previous tracing, no significant change. DOCTOR: Romie Herrmann Interpretating Date/Time 07/17/2017 14:56:26
[2017-07-17 17:47] VITALS: BP 123/65; PULSE 57; RESP 17; TEMP 97.8; O2SAT 96
[2017-07-17] MEDS: QUEtiapine FUMARATE 200 MG TAB PO SCH (21:08)
[2017-07-18 06:09] VITALS: BP 133/84; PULSE 59; RESP 16; TEMP 97.5; O2SAT 99
[2017-07-18] MEDS: LITHIUM CARBONATE 450 MG CONTROLLED RELEASE TAB PO SCH ×2 (08:37→18:33)
[2017-07-18] MEDS: QUEtiapine FUMARATE 100 MG TAB PO SCH (08:37)
--- NOTE | 2017-07-18 15:51 | HHI.PYPN ---
Subjective Chief Complaint: Bipolar depression Remarks Reviewed electronic medical record and discussed case with staff. Nurse reports patient has been in his bed all day. Patient has been compliant with his medications. Follow-up performed in patient's room with nurse present. Patient found sleeping in bed awoke easily to verbal stimuli. Patient reports that his appetite is been good and he slept well last night. He states that he is not hearing voices today. He denies suicidal and homicidal ideation as well as visual hallucinations. He does report feeling "a little down, due to having a lot on my plate". Patient's mood is sad as is his affect. He does not appear to be internally stimulated. His speech is clear, logical and organized. Mental Status Examination Appearance: Disheveled (Mild) Consciousness: Alert Orientation: x4 Motor Activity: Other (No motor abnormalities noted) Speech: Hesitant Language: Adequate Fund of Knowledge: Adequate Attention and Concentration: Adequate Memory: Unremarkable Mood: Other (Depressed) Affect: Other (Restricted) Thought Process & Associations: Intact Thought Content: Hallucinations Hallucination Type: Auditory (Deprecatory) Delusion Type: None Suicidal Ideation: No (Not presently but perhaps imminent) Suicidal Plan: No Suicidal Intention: No Homicidal Ideation: No Homicidal Plan: No Homicidal Intention: No Insight: Fair Judgment: Impulsive Results Vitals/IOs Vital Signs Date Time Temp Pulse Resp B/P (MAP) Pulse Ox O2 Delivery O2 Flow Rate FiO2 07/18/17 06:09 97.5 59 16 133/84 (100) 99 07/16/17 10:24 Room Air Assessment & Plan Problem List: (1) Bipolar disorder, curr episode depressed, severe, w/psychotic features ICD Codes: F31.5 - Bipolar disorder, current episode depressed, severe, with psychotic features (2) Polysubstance abuse ICD Codes: F19.10 - Other psychoactive substance abuse, uncomplicated Assessment & Plan Estimated LOS: Patient continues to be depressed. Will continue with treatment plan as ordered. Justification for Cont. Inpt. Moving this patient to a lower level of care would likely result in decompensation. Request HC Surrog/Guard Advoc?: No Vikki Bailey Jul 18, 2017 15:51
[2017-07-18 18:32] VITALS: BP 118/71; PULSE 67; RESP 16; TEMP 97.9; O2SAT 98
[2017-07-18] MEDS: QUEtiapine FUMARATE 200 MG TAB PO SCH (21:21)
[2017-07-19 06:03] VITALS: BP 112/73; PULSE 57; RESP 16; TEMP 97.9; O2SAT 99
[2017-07-19 06:03] LABS: BICARBONATE 29.6 MEQ/L (21.0-32.0); CREATININE 1.05 MG/DL (0.60-1.30)
[2017-07-19] MEDS: LITHIUM CARBONATE 450 MG CONTROLLED RELEASE TAB PO SCH (09:04)
[2017-07-19] MEDS: QUEtiapine FUMARATE 100 MG TAB PO SCH (09:05)
[2017-07-19] MEDS ORDERED: QUET1TAB9 PO (09:08)
[2017-07-19] MEDS ORDERED: LITH450T PO (09:08)
[2017-07-19] MEDS ORDERED: QUET1TAB8 PO (09:08)
--- NOTE | 2017-07-19 09:08 | HHI.DS ---
Psychiatry Discharge Summary Inpatient Psychiatric care?: Yes Advance Directive: No Reason Not Provided: refused Mental Health AdvanceDirective: No Health Care Proxy: No Admission Admission Date Jul 16, 2017 at 11:01 Admission Diagnosis: (1) Bipolar disorder, curr episode depressed, severe, w/psychotic features ICD Code: F31.5 - Bipolar disorder, current episode depressed, severe, with psychotic features (2) Polysubstance abuse ICD Code: F19.10 - Other psychoactive substance abuse, uncomplicated Brief History Mr. Calderon is a 27-year-old male with a history of bipolar disorder who presented to the emergency department complaining of worsening auditory hallucinations and depression in the setting of medication nonadherence. Reviewing the electronic medical record, I note the patient was admitted under Dr. Manning in September 2015 with diagnosis of bipolar disorder. Patient seen and examined. Chart reviewed. Case discussed with nurse in the emergency department. On my examination this morning, the patient reports that he has been off of his psychotropic medications, lithium and Seroquel for about the last 2 months. He says that he has been experiencing psychosocial stressors including a in the family and also the fact that the mother of his children has moved further away meaning it is more difficult for him to see his children. In the setting of the stressors in medication nonadherence, the patient reports worsening low mood, anxiety. Anhedonia is present. Some hopeless/worthless feelings. He reports auditory hallucinations, presently deprecatory. He is not presently suicidal but is fearful that he might become so soon without treatment. The patient notes that he is unlikely to comply with treatment in a less restrictive setting and this is why, in a moment of clarity, he brought himself to the ED. Even now, he seems to be growing ambivalent about pursuing treatment for his mental health issues. No delusional material. No current hypomanic or manic symptoms. Remainder of the psychiatric ROS is negative. No acute physical complaints. Past psychiatric history: The patient has a history of bipolar disorder. He follows at [facility] and was reportedly prescribed lithium and Seroquel. He has done well with these agents he tells me when he was on them in the past. Most recent psychiatric admission was here at [facility]. He denies a history of suicide or violence in the past. Family history: Patient denies family history of mental illness or suicide. Chemical dependency history: The patient reports use of cannabis. He denies any use of cocaine although his urine toxicology is positive for this. Occasional alcohol. Denies any use of benzos or opiates. Social history: The patient lives with an uncle. He has 4 children who live with their mother. He has 1/9 grade education. 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 He denies any or legal history. Denies any access to guns or firearms. He is a [employer]ism. He denies any history of abuse. Tobacco Use In Past 30 Days: No Tobacco Past 30 Days Alcohol Use: Monthly or Less Hospital Course Patient was admitted to a locked, inpatient psychiatric unit. Appropriate precautions were in place throughout patient's hospital stay. Patient was seen and examined on the unit by psychiatry and also visited by counselor. Psychotropic medications were adjusted. Patient tolerated medications well without side effects. Patient had improvement in presenting psychiatric symptomatology during the course of his hospital stay. There was no evidence of any suicidality or homicidality on the inpatient unit. There was no evidence of any self-care deficit. The patient remained in good behavioral control and was compliant with medications. On the day of discharge: Patient seen and examined with nurse. Chart reviewed. Case discussed with nursing staff. No behavioral issues noted overnight. On my examination today, the patient reports that his mood is improved versus admission. He denies any suicidal or homicidal ideation, intent or plan on direct questioning and contracts for safety. I can elicit no severe depressive or hypomanic/manic symptoms in this patient at this time. He denies any audiovisual hallucinations. I can elicit no delusional material. There is no evidence of ongoing impairment in reality construction. He denies any side effects from medications. [place] level is noted to be 0.7. He has no physical complaints. Suicide and violence risk assessment on day of discharge both suggest lower imminent risk from mental illness and level of function is adequate for outpatient care. Patient has maximized benefit from this inpatient psychiatric hospital stay and will be discharged home today with psychiatric follow-up as arranged by counselor. Patient is also to follow up with primary care. I have counseled the patient to abstain from substances of abuse. I have counseled the patient regarding warning signs for need to return to the psychiatric emergency room as part of a general safety plan. Results Blood Pressure 112 / 73 Vital Signs Date Time Temp Pulse Resp B/P (MAP) Pulse Ox O2 Delivery O2 Flow Rate FiO2 07/19/17 06:03 97.9 57 16 112/73 (86) 99 07/16/17 10:24 Room Air Laboratory Tests Test 07/17/17 07:57 07/19/17 05:21 HDL Cholesterol 71.0 MG/DL (40.0-60.0) Laboratory Results Test 07/17/17 07:57 07/19/17 05:21 Cholesterol Level 173 MG/DL (120-200) HDL Cholesterol 71.0 MG/DL (40.0-60.0) Hemoglobin A1c 5.7 % (4.3-6.0) LDL Cholesterol 92 MG/DL (0-99) Triglycerides Level 52 MG/DL (42-150) [place] Level 0.7 MEQ/L (0.5-1.5) Summary of Procedures None done Imaging None done Pending results at discharge: No Medications # of Antipsychotic meds at D/C: 1 Approp Antipsych med options 1 - Minimum of three failed multiple trials of monotherapy. 2 - Documented plan to taper to monotherapy due to previous use of multiple meds OR cross-taper in progress at D/C. 3 - Documentation of augmentation of Clozapine. 4 - Justification other than those listed in allowable values 1-3, document here : Discharge Discharge Date: Jul 19, 2017 Discharge Diagnosis: (1) Bipolar affective disorder, depressed in partial remission Diagnosis: Principal ICD Code: F31.75 - Bipolar disorder, in partial remission, most recent episode depressed (2) Polysubstance abuse Diagnosis: Secondary (counseled to quit) ICD Code: F19.10 - Other psychoactive substance abuse, uncomplicated Pt Condition on Discharge: Stable Discharge Disposition: Discharge Home Discharge Instructions Diet Instructions: As Tolerated, No Restrictions Activities you can perform: Weight Bearing as [place] Discharge Time <= 30 minutes Mental Status Examination Appearance: Appropriate Consciousness: Alert Orientation: x4 Motor Activity: Normal gait, Other (No abnormal motor movements noted) Speech: Unremarkable Language: Adequate Fund of Knowledge: Adequate Attention and Concentration: Adequate Memory: Unremarkable Mood: Appropriate (Mood improved versus admission) Affect: Appropriate Thought Process & Associations: Intact, Logical, Goal directed, Linear Thought Content: Appropriate Hallucination Type: None Delusion Type: None Suicidal Ideation: No Suicidal Plan: No Suicidal Intention: No Homicidal Ideation: No Homicidal Plan: No Homicidal Intention: No Mental Status Exam Remarks Insight and judgment are fair Discharge/Advance Care Plan Health Problems: (1) Bipolar disorder, curr episode depressed, severe, w/psychotic features (2) Polysubstance abuse Goals to promote your health * To prevent worsening of your condition and complications * To maintain your health at the optimal level Directions to meet your goals Take your medications as prescribed Follow your dietary instruction Follow activity as directed Keep your appointments as scheduled Take your immunizations and boosters as scheduled If your symptoms worsen call your PCP, if no PCP go to Urgent Care Center or Emergency Room For 02/11 questions related to your inpatient stay or results of tests pending at discharge, please contact Dr. Chano Cloud at Smoking is Dangerous to Your Health. Avoid second hand smoking Chano Cloud MD Jul 19, 2017 09:08
== END 2017-07-19 13:30 | disposition home or self-care (01) | DRG 885 ==
LOC: NEPD 09:10 → NEDA 07-16 11:01 → H260 07-16 12:30
PROVIDERS: ADMIT Psychiatry & Neurology Psychiatry; ATTEND Psychiatry & Neurology Psychiatry
DX: F31.5 Bipolar disorder, current episode depressed, severe, with psychotic features (principal); Z91.14 Patient's other noncompliance with medication regimen; F41.9 Anxiety disorder, unspecified; F12.90 Cannabis use, unspecified, uncomplicated; F19.10 Other psychoactive substance abuse, uncomplicated; Z72.0 Tobacco use
CPT/HCPCS: 80048; 80053; 80061; 80178; 80307; 83036; 84443; 85025; 93005